=== PATIENT | male | born 1985 | race Caucasian/White ===

== ENCOUNTER 2017-11-28 10:25 | Emergency (ER) | payer BC, OTHER ==
--- NOTE | 2017-11-28 10:33 | EDM.PDOC ---
ED HPI GENERAL MEDICAL PROBLEM - General Chief Complaint: Upper Extremity Injury/Pain Stated Complaint: LEFT HAND PAIN Time Seen by Provider: 11/28/17 10:29 Source of Information: Reports: Patient History Limitations: Reports: No Limitations - History of Present Illness INITIAL COMMENTS - FREE TEXT/NARRATIVE: HISTORY AND PHYSICAL: History of present illness: Patient is a 31-year-old male who presents to the emergency room today with complaints of left hand pain. He states he was playing basketball last night when he injured his left hand but proceeded with his day. Shortly after he has noticed increased pain and swelling to the mid left dorsal surface. Denies any numbness or tingling to the affected extremity. Review of systems: As per history of present illness and below otherwise all systems reviewed and negative. Past medical history: As per history of present illness and as reviewed below otherwise noncontributory. Surgical history: As per history of present illness and as reviewed below otherwise noncontributory. Social history: No reported history of drug or alcohol abuse. Family history: As per history of present illness and as reviewed below otherwise noncontributory. Physical exam: General: Well-developed and well-nourished 31-year-old male. Alert 90. Nontoxic appearing and in no acute distress. HEENT: Atraumatic, normocephalic, pupils reactive, negative for conjunctival pallor or scleral icterus, mucous membranes moist, throat clear, neck supple, nontender, trachea midline. Lungs: Clear to auscultation, breath sounds equal bilaterally, chest nontender. Heart: S1S2, regular rate and rhythm with no overt murmur Abdomen: Soft, nondistended, nontender. Negative for masses or hepatosplenomegaly. Negative for costovertebral tenderness. Pelvis: Stable nontender. Genitourinary: Deferred. Rectal: Deferred. Extremities: Moderate swelling noted to the dorsal surface of the left hand. Mild bruising noted. Able to close fist although this does cause pain. Strong radial pulse. Capillary refill less than 3 seconds. No wrist involvement. No pain with flexion and extension of the digits. Neurovascular unremarkable. Neuro: Awake, alert, oriented. Cranial nerves II through XII unremarkable. Cerebellum unremarkable. Motor and sensory unremarkable throughout. Exam nonfocal. X-ray shows a minimally displaced oblique proximal third metacarpal fracture. Dr Guardado was consulted on this case and has reviewed his x-ray. She would like to see him in 7-10 days for reevaluation/follow-up. Patient will be placed in a volar splint. Prescription for Burns, dispense 20, no refill. Encourage patient to use for nighttime use. While at work may use Tylenol and ibuprofen. Rest, ice and elevate the extremity. He voices understanding and is agreeable to plan of care. He denies any further questions at this time. Diagnostics: Xray Left Hand Therapeutics: Volar splint Impression: Minimally displaced third metacarpal fracture, left Plan: 1. Please wear the splint as directed. Rest, ice, elevate the extremity. 2. Please take your medication as prescribed. It may cause drowsiness so please reserve for home or nighttime use. Do not drive while taking this medication or use while needing to be functioning outside the house. For daytime or during the workday may use Tylenol and/or ibuprofen as needed. 3. Follow up with Dr. Mary Guardado in 7-10 days. Return to the ED as needed and as discussed. Definitive disposition and diagnosis as appropriate pending reevaluation and review of above. Duration: Hour(s): Location: Reports: Upper Extremity, Left left hand Pain Score (Numeric/FACES): 7 - Related Data Allergies Allergy/AdvReac Type Severity Reaction Status Date / Time No Known Allergies Allergy Verified 11/28/17 10:52 Home Meds: Home Meds . [No Known Home Meds] 11/28/17 [History] Review of Systems - Review of Systems Review Of Systems: ROS reveals no pertinent complaints other than HPI. ED EXAM, GENERAL - Physical Exam Exam: See Below (See dictation) Course - Vital Signs Last Recorded V/S: Last Vital Signs Temp 98.7 F 11/28/17 10:44 Pulse 82 11/28/17 10:44 Resp 16 11/28/17 10:44 BP 138/71 11/28/17 10:44 Pulse Ox 99 11/28/17 10:44 Departure - Departure Time of Disposition: 10:58 Disposition: Home, Self-Care 01 Clinical Impression: Fracture of metacarpal bone Qualifiers: Encounter type: initial encounter Metacarpal bone: third Fracture type: closed Metacarpal location: shaft Fracture alignment: displaced Laterality: left Qualified Code(s): S62.323A - Displaced fracture of shaft of third metacarpal bone, left hand, initial encounter for closed fracture - Discharge Information Instructions: Metacarpal Fracture, [id number] Referrals: PCP,None [Primary Care Provider] - Forms: ED Department Discharge Additional Instructions: My general discharge The following information is given to patients seen in the emergency department who are being discharged to home. This information is to outline your options for follow-up care. We provide all patients seen in our emergency department with a follow-up referral. The need for follow-up, as well as the timing and circumstances, are variable depending upon the specifics of your emergency department visit. If you don't have a primary care physician on staff, we will provide you with a referral. We always advise you to contact your personal physician following an emergency department visit to inform them of the circumstance of the visit and for follow-up with them and/or the need for any referrals to a consulting specialist. The emergency department will also refer you to a specialist when appropriate. This referral assures that you have the opportunity for follow-up care with a specialist. All of these measure are taken in an effort to provide you with optimal care, which includes your follow-up. Under all circumstances we always encourage you to contact your private physician who remains a resource for coordinating your care. When calling for follow-up care, please make the office aware that this follow-up is from your recent emergency room visit. If for any reason you are refused follow-up, please contact the [facility] Emergency Department at and asked to speak to the emergency department charge nurse. [facility] Specialty [facility] - Plastic Surgery (DR GUARDADO) Professional Building [address] [place] [address], [address] [place] [address] 1. Please wear the splint as directed. Rest, ice, elevate the extremity. 2. Please take your medication as prescribed. It may cause drowsiness so please reserve for home or nighttime use. Do not drive while taking this medication or use while needing to be functioning outside the house. For daytime or during the workday may use Tylenol and/or ibuprofen as needed. 3. Follow up with Dr. Mary Guardado in 7-10 days (Please call to set up this appointment). Return to the ED as needed and as discussed.
--- NOTE | 2017-11-28 10:45 | CR ---
EXAMINATION: Left hand HISTORY: Pain COMPARISON: None TECHNIQUE: 2 views FINDINGS/IMPRESSION: There is a minimally displaced oblique proximal third metacarpal fracture identi fied. The remaining osseous structures and joint spaces appear preserved. No mineralization is otherw ise normal.
== END 2017-11-28 11:08 | disposition home or self-care (01) ==
LOC: MW.ED 10:25
DX: S62.323A Displaced fracture of shaft of third metacarpal bone, left hand, initial encounter for closed fracture (principal); W19.XXXA Unspecified fall, initial encounter; Y93.67 Activity, basketball
CPT/HCPCS: 29125; 73120-26-LT; 73120-LT; 99283